=== PATIENT | female | born 1990 | race American Indian/Alaskan Native ===

== ENCOUNTER 2021-07-16 13:27 | Emergency (ER) | payer SELFPAY ==
--- NOTE | 2021-07-16 15:43 | XRay Report ---
XR knee 3V RT INDICATION / CLINICAL INFORMATION: knee pain. COMPARISON: None available. FINDINGS: No acute fracture. Normal alignment. Joint spaces are preserved. No destructive osseous lesion or s uspicious periosteal reaction. Impression: 1.No acute fracture. Signer Name: Richard Jacobo MD Signed: 07/16/2021 3:39 PM Workstation Name: [id number]
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
[2021-07-16] MEDS ORDERED: IBUPROFEN 800 MG TAB PO ONE (15:55)
[2021-07-16 17:43] VITALS: BP 124/70
== END 2021-07-16 17:41 | disposition home or self-care (01) ==
LOC: ED 13:27
DX: S86.911A Strain of unspecified muscle(s) and tendon(s) at lower leg level, right leg, initial encounter (principal); V89.2XXA Person injured in unspecified motor-vehicle accident, traffic, initial encounter; Y93.89 Activity, other specified; Y92.89 Other specified places as the place of occurrence of the external cause; Y99.8 Other external cause status
CPT/HCPCS: 99283